=== PATIENT | female | born 1950 | race Caucasian/White ===

== ENCOUNTER → 2017-07-10 | Outpatient (CLI) | payer OTHER, BC ==
[~2017-07-10] MED LIST: ASPI81TA28 PO; FLUT0.15 NAE; NIAC50TA9 PO; OMEG10007 PO; TRAM-10 PO
--- NOTE | 2017-07-10 10:31 | DIAGNOSTIC IMAGING REPORT ---
TEMPORAL BONE CT WITHOUT CONTRAST CLINICAL HISTORY: CHOLESTEATOMA OF MASTOID RT EAR COMPARISON STUDY: No previous studies for comparison. TECHNIQUE: Axial images of the temporal bones were obtained without IV contrast. Coronal and sagittal reformats were viewed. FINDINGS: The orbits are unremarkable on this unenhanced exam. Intracranial contents are suboptimally assessed on this study but no significant abnormalities are identified. The right mastoid air cells are largely opacified. There is erosion of the right-sided ossicles as well as blunting of the right scutum. There is no soft tissue/fluid within Prussak's space on this exam. However, there is a small amount of fluid/soft tissue along the posterior aspect of the right ossicles extending and the right mastoid air cells. The left ossicles and scutum are intact. There is a small amount of fluid/soft tissue within the inferior left mastoid air cells. No additional sites of bony erosion are present. There is mild mucosal thickening of the ethmoid and right sphenoid sinuses with a suspected left maxillary sinus mucous retention cyst. IMPRESSION: 1. Near complete opacification of the right mastoid air cells with soft tissue/fluid. Erosion of the right-sided ossicles and scutum. No soft tissue/fluid within the right Prussak's space on this exam however small amount of soft tissue/fluid along the posterior aspect of the right ossicles may reflect a cholesteatoma given bony erosion. 2. Left ossicles intact. Small amount of fluid/soft tissue within the inferior left mastoid air cells. Electronically signed by: Satnam Godoy M.D. 07/10/2017 10:30 AM Dictated Date/Time: 07/10/2017 10:13 AM
== END | disposition home or self-care (01) ==
LOC: C.CTS 09:56 → EDBD 10:20
PROVIDERS: ATTEND Otolaryngology
DX: H71.21 Cholesteatoma of mastoid, right ear (principal)

== ENCOUNTER → 2017-08-03 | Day surgery (SDC) | payer OTHER, BC ==
[2017-07-26 09:38] VITALS: BMI 33.0
--- NOTE | 2017-07-26 10:03 | PAT Medication Instructions ---
Service Date Jul 26, 2017. Current Home Medication List Aspirin (Aspirin Ec), 81 MG PO HS Fish Oil ([place]-3), 1 CAP PO BID Fluticasone Propionate (Nasal) (Flonase Allergy Relief), 1 DOSE KAROL UD PRN for prn Niacin (Niacin), Unknown Dose PO HS Medication Instructions For Your Scheduled Surgery - Check with surgeon for instructions: Aspirin (Aspirin Ec), 81 MG PO HS - Hold the following medications starting 07/26/17: Fish Oil ([place]-3), 1 CAP PO BID - Hold the following medications 24 hours prior to surgery: Niacin (Niacin), Unknown Dose PO HS - Take the following medications the morning of surgery with a sip of water: Fluticasone Propionate (Nasal) (Flonase Allergy Relief), 1 DOSE KAROL UD PRN for prn (if needed) - Take the following medications as scheduled the night before surgery: Fluticasone Propionate (Nasal) (Flonase Allergy Relief), 1 DOSE KAROL UD PRN for prn (if needed) If you have any questions please call us at [phone] or [phone] or [phone]
--- NOTE | 2017-08-02 19:22 | HISTORY & PHYSICAL EXAMINATION ---
DATE OF ADMISSION: 08/02/2017 DIAGNOSIS: Cholesteatoma of the right ear. HISTORY OF PRESENT ILLNESS: This 66-year-old lady was referred by Dr. Mittal because of hearing loss and persistent drainage from the right ear. She was found to have a rather large cholesteatoma and is being admitted for tympanomastoidectomy. PAST MEDICAL HISTORY: Medical problems, none. PREVIOUS SURGERIES: Tonsillectomy and foot surgery. ALLERGIES: None known. MEDICATIONS: Niacin. FAMILY HISTORY: Negative. SOCIAL HISTORY: Smokes half a pack per day. REVIEW OF SYSTEMS: Otherwise, negative. PHYSICAL EXAMINATION: GENERAL: WNWD female. VITAL SIGNS: 5 feet, 6 inches, 195 pounds. HEAD: Normocephalic. EYES: Normal. EARS: Left tympanic membrane is intact. Right tympanic membrane shows a posterior superior perforation with a large cholesteatoma. Audiogram showed a mixed hearing loss of 50 dB of the right ear. NOSE: Nasal passages patent. THROAT: Oropharynx status post tonsillectomy. HEART: RRR. LUNGS: Clear. ABDOMEN: Soft. GENITOURINARY: Deferred. EXTREMITIES: Full range of motion. IMPRESSION: Cholesteatoma of the right ear. PLAN: For tympanomastoidectomy. GWEN
[~2017-08-03] VITALS: Ht 167.6 cm; Wt 94.8 kg
[~2017-08-03] MED LIST changes: +ATROPINE SULFATE 0.1 MG/ML 5ML SYR IV PRN; +CEFAZOLIN SOD 2000MG/15 ML IV PUSH IV ONE; +DEXAMETHASONE SOD INJ 4 MG/ML VIAL ONE; +EpHEDrine SULFATE 50MG/5ML SYR ONE; +EpHEDrine SULFATE INJ 50 MG/ML AMP IV PRN; +EpINEphrine HCL INJ 1 MG/ML 5ML SYRINGE ONE; +FENTANYL CITRATE INJ 50 MCG/1 ML 2 ML VIAL IV PRN; +FENTANYL CITRATE INJ 50 MCG/1 ML 2 ML VIAL ONE; +GELATIN SPONGE 12-7MM ONE; +GLYCOPYRROLATE INJ 0.2 MG/ML VIAL ONE; +HYDROCODONE/ACETAMOPHEN 5/325MG TAB PO PRN; +HYDROmorphone INJ 1 MG/ML SYR IV PRN; +LIDO 2%/EPINEPHRINE 1:100000 20 ML VIAL INFIL ONE; +LIDOCAINE HCL 2% 2 ML VIAL (20MG/ML) ONE; +MIDAZOLAM HCL 1 MG/ML 2ML VIAL ONE; +NEOMYC/POLYMYX/BACITR/HC OP OI 3.5 GM TUBE ONE; +NEOMYCIN/POLYMYX/HYDROCORT OT SUSP 10 ML BTL ONE; +NEOSTIGMINE METHYLSULFATE 5 MG/5 ML SYR ONE; +NURSING VERBAL MED ORDER ONE; +ONDANSETRON INJ 2 MG/ML 2 ML VIAL IV PRN; +ONDANSETRON INJ 2 MG/ML 2 ML VIAL ONE; +PHENYLEPHRINE 100MCG/ML 5ML SYR ONE; +PROMETHAZINE HCL INJ 12.5 MG in SODIUM CHLORIDE 0.9% 50ML 50 ML IV PRN; +PROPOFOL IV EMULSION 10 MG/ML 20 ML VIAL IV ONE; +ROCURONIUM BROMIDE 10 MG/ML 5 ML VIAL IV ONE; +SODIUM CHLORIDE 0.9% 1000ML 1,000 ML IV SCH
[2017-08-03 07:33] VITALS: BP 155/78; PULSE 79; TEMP 37.2; O2SAT 95; Ht 167.6 cm; Wt 94.8 kg
--- NOTE | 2017-08-03 08:22 | History & Physical Bridge Note ---
H&P Re-Evaluation Bridge Note: I have examined the patient, reviewed the History & Physical and in the interval since the performance of the History & Physical I have noted the following changes of clinical significance: No changes noted
--- NOTE | 2017-08-03 09:15 | History & Physical Bridge Note ---
H&P Re-Evaluation Bridge Note: I have examined the patient, reviewed the History & Physical and in the interval since the performance of the History & Physical I have noted the following changes of clinical significance: right ear. No changes noted
--- NOTE | 2017-08-03 12:23 | [facility] Post Operative Brief Note ---
Immediate Operative Summary Operative Date Aug 03, 2017. Pre-Operative Diagnosis Cholesteatoma of the right ear Post-Operative Diagnosis Same Procedure(s) Performed Right Tympanomastoidectomy Surgeon Dr Arzate Slitter Operator Surgeon(s) None Estimated Blood Loss 30 Findings Consistent with Post-Op Diagnosis Specimens A. cholesteatoma (permanent) Drains None Anesthesia Type General Complication(s) none Disposition Accompanied Pt To Recover: yes Disposition: Recovery Room / PACU
--- NOTE | 2017-08-03 12:32 | [facility] Operative Report ---
Operative Report Operative Date Aug 03, 2017. Pre-Operative Diagnosis Cholesteatoma of the right ear Post-Operative Diagnosis Same Procedure(s) Performed Right Tympanomastoidectomy Surgeon Dr Arzate Deputy Director Of Nursing Surgeon(s) None Estimated Blood Loss 30 Findings Attic cholesteatoma Specimens A. cholesteatoma (permanent) Drains none Anesthesia Gen. endotracheal Complication(s) None Disposition Recovery Room / PACU Indications 66-year-old lady with drainage from right ear with hearing loss found to have cholesteatoma in a posterior superior perforation Description of Procedure The patient was brought to the operating room and placed in the supine position. General endotracheal anesthesia was induced. The right ear was prepped with Betadine scrub and paint and draped in the usual sterile manner. The right postauricular area and the canal injected with 2% Xylocaine with 1 100 ,000 strength epinephrine. The canal was inspected the cholesteatoma was deep extending posterior superiorly. The microscope was used. The postauricular incision was made using the 15 blade and carried down through the skin and scalp cutaneous layer exposing the temporalis fascia which was harvested for use later as a fascia graft. Periosteal incision was made in the shape of a 7 using the 15 blade and then elevated using the Leona and Abe periosteal elevators and then the [place] elevator. Canal skin was elevated using the round knife incontinuity elevating the canal skin inferiorly at the annulus entering the middle space inferiorly and then continuing the dissection superiorly encountering the cholesteatoma and encountering the stapes but finding the incus to be absent and the chorda tympani nerve to be absent. At this point mastoidectomy was performed using the 4 mm drill bit opening up the sinodural angle delineating the tegmen and the sigmoid, going through the Bryant septum into the mastoid antrum, widening the exposure anteriorly and superiorly, exposing the tegmen and the facial recess using the 3 and then the 1 mm bur. In this manner the entire cholesteatoma sac posterior superiorly was exposed. The sac was dissected free from the tegmen and from the malleus and from the remnant of the incus using the round knife, the Arango needle, the right angle picks, and the Babar dissector. The sac was delivered over the malleus into the middle ears space and removed. There was extension up to the tegmen which was removed and also extension anteriorly into the eustachian tube orifice which was also dissected free. Again the incus was eroded except for a tiny remnant superiorly whereas the malleus and the stapes appeared intact. Again the chorda tympani nerve was noted to be absent from the cholesteatoma. With the cholesteatoma removed the middle ear space and attic space was filled with pieces of dry Gelfoam. The temporalis fascia was placed in an underlay manner underneath the tympanomeatal flap and then draped onto the superior and posterior canal wall. The tympanal meatal flap was reflected back in its original position and packed in place with pieces of Gelfoam initially dry and later not dipped in Cortisporin solution. The canal was filled with Cortisporin ointment. The postauricular incision was closed in layers with interrupted 4-0 Vicryl sutures on the periosteum, interrupted 4-0 Vicryl sutures on the subcutaneous layer. And a continuous 4-0 nylon suture on the skin layer. A Grant dressing was placed and the patient was taken to the recovery area where facial nerve function was noted to be intact. I attest to the content of the Intraoperative Record and any orders documented therein. Any exceptions are noted below.
--- NOTE | 2017-08-03 12:34 | Discharge Instructions-SurgCtr ---
Discharge Instructions Date of Service Aug 03, 2017. Visit Reason for Visit: Right Ear Cholesteatoma Discharge Discharge Diagnosis / Problem: same Discharge Goals Goal(s): Therapeutic intervention Activity Recommendations Activity Limitations: resume your previous activity Anesthesia . Post Anesthesia Instructions: If you have had General Anesthesia or IV Sedation: * Do not drive today. * Resume driving when surgeon permits. * Do not make important decisions or sign legal documents today. * Call surgeon for: 1. Temperature elevations greater than 101 degrees F. 2. Uncontrollable pain. 3. Excessive bleeding. 4. Persistent nausea and vomiting. 5. Medication intolerance (nausea, vomiting or rash). * For nausea and vomiting use only clear liquids such as: tea, soda, bouillon until nausea subsides, then gradually increase diet as tolerated. * If you have any concerns or questions, call your surgeon's office. If physician is unavailable and it is an emergency, call 911 or go to the nearest emergency room. . Instructions / Follow-Up Instructions / Follow-Up ACTIVITY RECOMMENDATIONS: No limitations OVER THE COUNTER MEDICATIONS: Continue any other previous medications unless otherwise indicated by your surgeon. * You may use Tylenol for mild pain as per bottle instructions. SPECIAL CARE INSTRUCTIONS: * Keep operative ear dry. * Change cotton balls 4 times per day. Leave packing in ear. * Sneeze with your mouth open. * Do not blow your nose. Sniff back instead. * Please call with any increasing pain, increasing drainage, active bleeding, redness and/or swelling, or any concerns. Dr. Arzate's office number is . FOLLOW UP VISIT: If not already scheduled, please call to schedule follow-up appointment with Dr. Arzate. Diet Recommendations Home Diet: no limitations Procedures Procedures Performed: Right Tympanomastoidectomy Pending Studies Studies pending at discharge: no Medical Emergencies . Who to Call and When: Medical Emergencies: If at any time you feel your situation is an emergency, please call 911 immediately. . Non-Emergent Contact Non-Emergency issues call your: Primary Care Provider . . "Provider Documentation" section prepared by Yoselin Arzate. . [place] Drug Monitoring Program Search Results: no issues identified
--- NOTE | 2017-08-03 12:53 | Anesthesiology Progress Note ---
Anesthesia Post Op Note Date & Time Aug 03, 2017 at 12:53 Vital Signs Pain Intensity: 0 Vital Signs Past 12 Hours Date Time Temp Pulse Resp B/P (MAP) Pulse Ox O2 Delivery O2 Flow Rate FiO2 08/03/17 12:40 82 17 152/88 (101) 96 Oxymask 10 08/03/17 12:30 85 16 164/107 (126) 95 Oxymask 10 08/03/17 12:21 36.4 90 12 176/115 (124) 95 Oxymask 10 08/03/17 07:33 37.2 79 20 155/78 (103) 95 Room Air Notes Mental Status: alert / awake / arousable, participated in evaluation Pt Amnestic to Procedure: Yes Nausea / Vomiting: adequately controlled, improving with treatment Pain: adequately controlled Airway Patency, RR, SpO2: stable & adequate BP & HR: stable & adequate Hydration State: stable & adequate Anesthetic Complications: no major complications apparent
[2017-08-03 13:20] VITALS: BP 111/58; PULSE 87; TEMP 36.4; O2SAT 95
[2017-08-03 13:50] VITALS: BP 127/63; PULSE 94; O2SAT 93
[2017-08-03 14:14] VITALS: BP 132/65; PULSE 92; TEMP 36.3; O2SAT 94
[2017-08-03 14:50] VITALS: BP 126/66; PULSE 93; O2SAT 97
== END | disposition home or self-care (01) ==
LOC: C.ACU 07:19
PROVIDERS: ATTEND Otolaryngology
DX: H71.01 Cholesteatoma of attic, right ear (principal); E78.5 Hyperlipidemia, unspecified; F17.200 Nicotine dependence, unspecified, uncomplicated